=== PATIENT | female | born 1935 | race Caucasian/White ===

== ENCOUNTER 2016-12-08 09:00 | Emergency (ER) | payer OTHER ==
[2016-12-08 09:05] VITALS: BP 142/92; BMI 19.3
--- NOTE | 2016-12-08 09:48 | DR.GENAD ---
HPI - PCP Primary Care Physician: JEANMARIE - Complaint/Symptoms Chief Complaint Doctors Comments: Patient states she has been having stomach pain for the past four days and she thinks she may have a blockage. States the left side of her stomach has a area of swelling and she has not had a bowel movemen for 3-4 days. States she is to have a scan of her stomach next week. States she noticed a buldging in the LLQ the other day. States her stomach is not really painful but feels like when it gets upset and growling. States she is a patient of Dr. Jackson. She denies hematuria, fever, chills, but did have episode diarrhea earlier. States she has been having problems with her stomach but denies stomach ulcers. Chief Complaint:: PATIENT STATED THAT SHE HAS BEEN HAVING STOMACH PROBLEMS FOR THE LAST WEEK AND THINKS SHE MAY HAVE A BLOCKAGE. PATIENT STATED THAT SHE HAS NOT HAD A BOWEL MOVEMENT IN 4 DAYS. - Nurses notes reviewed Nurses Notes Review: Yes - Source History Provided: Patient - Mode of Arrival Mode of Arrival: Ambulatory - Timing Onset of Chief Complaint: 12/01/16 Came on: Gradually - Duration Duration: Constant How lon Duration: Days - Location Location: left lower abdominal discomfort - Severity Severity: Mild - Modifying Factors Worsens:: nothing Improves:: nothing PMH - PMH Past Medical History: Yes Past Medical History: Hypothyroidism Past Surgical History: No - Family History History of Family Medical Conditions: Yes Family Medical History Comment: STROKE - Social History Does patient currently use any type of tobacco product: No Have you used tobacco products in the last 12 months: No Type of Tobacco Use: None Does any household member use tobacco: No Alcohol Use: None Do you use any recreational Drugs:: No Lives With: Family Lives Where: Home - infectious screening In the last 2 months have you had wt loss of >10#?: NO Have you had fever, night sweats or hemotysis?: No Have you traveled outside the country in the last 6 months?: No Isolation: Standard ROS - Review of Systems Constitutional: No Symptoms Reported Eyes: No Symptoms Reported. negative: See HPI, Eye Pain, Blurred Vision, Tearing, Discharge, Photophobia, Diplopia, Other ENTM: No Symptoms Reported Respiratoy: No Symptoms Reported Cardiovascular: No Symptoms Reported. negative: See HPI, Chest Pain, Edema, Palpitations, Syncope, Cyanosis, Skin Mottling, Other Gastrointestinal/Abdominal: No Symptoms Reported, Abdominal Pain Genitourinary: No Symptoms Reported. negative: See HPI, Discharge, Dysuria, Frequency, Hematuria, Pain, Bleeding, Other Neurological: No Symptoms Reported Musculoskeletal: No Symptoms Reported Integumentary: No Symptoms Reported. negative: See HPI, Change in Color, Change in Hair/Nails, Dryness, Lesions, Lumps, Rash, Itching, Wound, Bruises, Juandice, Other Hematologic/Lymphatic: No Symptoms Reported Endocrine: No Symptoms Reported Psychiatric: No Symptoms Reported PE - Vital Signs Vitals: Temperature 97.9 F Pulse Rate 99 Respiratory Rate 20 Blood Pressure 142/92 O2 Sat by Pulse Oximetry 98 - General Limitations: No Limitations General Appearance: Alert, In No Apparent Distress - Head Head Exam: Normal Inspection, Atraumatic, Normocephalic - Eyes Eye exam: Normal Appearance, PERRL, EOMI. negative: Scleral Icterus, Conjunctival Injection, Nystagmus, Miosis, Mydrasis, Periorbital Swelling, Periorbital Tenderness, Other - ENT ENT Exam: Normal Exam, Normal Oropharynx, Normal External Ear Exam, Mucous Membranes Moist, TM's Normal Bilaterally External Ear Exam: Normal External Inspection TM/Canal Exam: Bilateral Normal Nose Exam: Normal Nose Exam Mouth Exam: Normal Inspection Throat Exam: Normal Inspection - Neck Neck Exam: Normal Inspection, Full ROM, Trachea Midline. negative: Tenderness, Meningismus, Lymphadenopathy, Thyromegaly, Other - Chest Chest Inspection: Normal Inspection, Symmetric Chest Wall Rise. negative: Tenderness, Rash, Abscess, Other - Respiratory Respiratory Exam: Normal Lung Sounds Bilat Respiratory Exam: Bilateral Clear to Auscultation - Cardiovascular Cardiovascular Exam: Regular Rate, Normal Rhythm, Normal Heart Sounds - Abdominal Exam Abdominal Exam: Normal Inspection, Normal Bowel Sounds, Soft, Hernia (left hypogastric hernia) Abdominal Tenderness: Epigastrium, Mild - Extremities Extremities Exam: Normal Inspection, Full ROM, Normal Capillary Refill. negative: Tenderness, Edema, Joint Swelling, Calf Tenderness, Other - Back Back Exam: Normal Inspection, Full ROM. negative: Tenderness, (R) CVA Tenderness, (L) CVA Tenderness, Muscle Spasm, Paraspinal Tenderness, Vertebral Tenderness, Rashes, (R) Sciatic Notch Tenderness, (L) Sciatic Notch Tendern, (R ) Straight Leg Raise, (L) Straight Leg Raise, Other - Neurologic Neurological Exam: Alert, Oriented X3, CN II-XII Intact, Normal Gait, Reflexes Normal - Psychiatric Psychiatric Exam: Normal Affect, Normal Mood - Skin Skin Exam: Warm, Dry, Intact, Normal Color ROR - Labs Reviewed Laboratory Results Reviewed?: Yes (all labs and x-ray results reviewed and discussed with patient) Result Diagrams: 12/08/16 09:50 12/08/16 09:50 Laboratory: WBC 6.5 X10^3/uL (3.6-10.0) 12/08/16 09:50 RBC 4.84 X10^6/uL (3.5-5.4) 12/08/16 09:50 Hgb 15.3 g/dL (12.0-16.0) 12/08/16 09:50 Hct 44.8 % (36.0-47.0) 12/08/16 09:50 MCV 92.6 fL (80.0-100.0) 12/08/16 09:50 MCH 31.6 pg (27.0-34.0) 12/08/16 09:50 MCHC 34.1 g/dL (33.0-35.0) 12/08/16 09:50 RDW 13.0 % (11.6-16.5) 12/08/16 09:50 Plt Count 224 X10^3/uL (150.0-450.0) 12/08/16 09:50 MPV 9.2 fL (7.4-11.0) 12/08/16 09:50 Neut % 59.4 % (42.0-75.0) 12/08/16 09:50 Lymph % 30.0 % (21.0-51.0) 12/08/16 09:50 [place] % 7.8 % (0.0-13.0) 12/08/16 09:50 Eos % 2.2 % (0.9-2.9) 12/08/16 09:50 Baso % 0.6 % (0.2-1.0) 12/08/16 09:50 Neut # 3.9 x10^3/uL (2.2-4.8) 12/08/16 09:50 Lymph # 1.9 X10^3/uL (1.3-2.9) 12/08/16 09:50 [place] # 0.5 x10^3/uL (0.3-0.8) 12/08/16 09:50 Eos # 0.1 x10^3/uL (0.0-0.2) 12/08/16 09:50 Baso # 0.0 X10^3/uL (0.0-0.1) 12/08/16 09:50 Absolute Nucleated RBC 0.0 /100WBC 12/08/16 09:50 Sodium 140 mmol/L (136-145) 12/08/16 09:50 Corrected Sodium TNP 12/08/16 09:50 Potassium 4.3 mmol/L (3.5-5.1) 12/08/16 09:50 Chloride 105 mmol/L (98-107) 12/08/16 09:50 Carbon Dioxide 26.6 mmol/L (21-32) 12/08/16 09:50 BUN 17 mg/dL (7-18) 12/08/16 09:50 Creatinine 1.26 mg/dL (0.55-1.02) H 12/08/16 09:50 Est GFR (MDRD) Af Amer 53 (>60) L 12/08/16 09:50 Est GFR (MDRD) Non-Af 43 (>60) L 12/08/16 09:50 Glucose 108 mg/dL (65-99) H 12/08/16 09:50 Calcium 9.7 mg/dL (8.5-10.1) 12/08/16 09:50 Corrected Calcium TNP 12/08/16 09:50 Total Bilirubin 0.80 mg/dL (0.2-1.0) 12/08/16 09:50 AST 16 Units/L (15-37) 12/08/16 09:50 ALT 18 Units/L (12-78) 12/08/16 09:50 Alkaline Phosphatase 65 Units/L (46-116) 12/08/16 09:50 Total Protein 7.2 g/dL (6.4-8.2) 12/08/16 09:50 Albumin 3.9 g/dL (3.4-5.0) 12/08/16 09:50 Globulin 3.3 g/dL (2.5-4.5) 12/08/16 09:50 Albumin/Globulin Ratio 1.2 Ratio (1.1-2.1) 12/08/16 09:50 Amylase 49 Units/L (25-115) 12/08/16 09:50 Lipase 177 Units/L (73-393) 12/08/16 09:50 Specimen Type Clean catch urine 12/08/16 09:45 Urine Color Yellow (YELLOW) 12/08/16 09:45 Urine Appearance Hazy (CLEAR) 12/08/16 09:45 Urine pH 5.0 (5.0 - 8.0) 12/08/16 09:45 Ur Specific [place] 1.025 (1.000-1.030) 12/08/16 09:45 Urine Protein 1+ (NEGATIVE) 12/08/16 09:45 Urine Glucose (UA) Negative (NEGATIVE) 12/08/16 09:45 Urine Ketones 3+ (NEGATIVE) 12/08/16 09:45 Urine Occult Blood 2+ (NEGATIVE) 12/08/16 09:45 Urine Nitrite Negative (NEGATIVE) 12/08/16 09:45 Urine Bilirubin Negative (NEGATIVE) 12/08/16 09:45 Urine Urobilinogen Normal (NORMAL) 12/08/16 09:45 Ur Leukocyte Esterase 1+ (NEGATIVE) 12/08/16 09:45 Urine RBC 0-2 /HPF (NEGATIVE) 12/08/16 09:45 Urine WBC 0-2 /HPF (NEGATIVE) 12/08/16 09:45 Ur Squamous Epith Cells Few /HPF (NEGATIVE) 12/08/16 09:45 Urine Bacteria Trace /HPF (NEGATIVE) 12/08/16 09:45 Hyaline Casts Few /LPF (NEGATIVE) 12/08/16 09:45 Urine Mucus Moderate /HPF (NEGATIVE) 12/08/16 09:45 Ur Culture Indicated? No/not indicated 12/08/16 09:45 - XRAY XRAY Interpreted by: Radiologist (CT abdomen: sigmoid and descending colonic diverticulosis w/mod stool; left renal cysts) - Diagnosis Discharge Problem: Diverticulosis of colon, Constipation, Hernia of abdominal wall - Discharge Plan Disposition: 01 HOME, SELF-CARE Condition: Stable - Follow ups/Referrals Follow ups/Referrals: Sabas Jackson [Primary Care Provider] - 3 days - Instructions Instructions: Diverticulosis, Constipation, Adult, [id number], Hernia, Adult
[2016-12-08 09:55] LABS: BILIRUBIN,URINE NEGATIVE (NEGATIVE); BLOOD/HEMOGLOBIN,URINE 2+ (NEGATIVE); GLUCOSE, URINE NEGATIVE (NEGATIVE); KETONES,URINE 3+ (NEGATIVE); LEUKOCYTE ESTERASE ,URINE 1+ (NEGATIVE); NITRITES,URINE NEGATIVE (NEGATIVE); PROTEIN,URINE 1+ (NEGATIVE); UROBILINOGEN,URINE NORMAL (NORMAL)
[2016-12-08 09:55] LABS: BASOPHILS % (AUTO) 0.6 % (0.2-1.0); EOSINOPHILS # (AUTO) 0.1 x10^3/uL (0.0-0.2); EOSINOPHILS % (AUTO) 2.2 % (0.9-2.9); HEMATOCRIT 44.8 % (36.0-47.0); HEMOGLOBIN 15.3 g/dL (12.0-16.0); LYMPHOCYTES # (AUTO) 1.9 X10^3/uL (1.3-2.9); MEAN CORPUSCULAR HEMOGLOBIN 31.6 pg (27.0-34.0); MEAN CORPUSCULAR HGB CONC 34.1 g/dL (33.0-35.0); MEAN CORPUSCULAR VOLUME 92.6 fL (80.0-100.0); MEAN PLATELET VOLUME 9.2 fL (7.4-11.0); MONOCYTES # (AUTO) 0.5 x10^3/uL (0.3-0.8); MONOCYTES % (AUTO) 7.8 % (0.0-13.0); NEUTROPHILS # (AUTO) 3.9 x10^3/uL (2.2-4.8); NEUTROPHILS % (AUTO) 59.4 % (42.0-75.0); PLATELET COUNT 224 X10^3/uL (150.0-450.0); RED BLOOD COUNT 4.84 X10^6/uL (3.5-5.4); WHITE BLOOD COUNT 6.5 X10^3/uL (3.6-10.0)
[2016-12-08 10:04] LABS: APPEARANCE,URINE HAZY (CLEAR); BACTERIA,URINE TRACE /HPF (NEGATIVE); COLOR,URINE YELLOW (YELLOW); HYALINE CASTS, URINE FEW /LPF (NEGATIVE); MUCUS,URINE MODERATE /HPF (NEGATIVE); RBC,URINE 0-2 /HPF (NEGATIVE); SQUAMOUS EPITHELIAL CELL,UR FEW /HPF (NEGATIVE)
[2016-12-08 10:09] LABS: ALANINE AMINOTRANSFERASE 18 Units/L (12-78); ALBUMIN 3.9 g/dL (3.4-5.0); ALKALINE PHOSPHATASE 65 Units/L (46-116); AMYLASE 49 Units/L (25-115); ASPARTATE AMINO TRANSFERASE 16 Units/L (15-37); BLOOD UREA NITROGEN 17 mg/dL (7-18); CALCIUM 9.7 mg/dL (8.5-10.1); CARBON DIOXIDE 26.6 mmol/L (21-32); CHLORIDE 105 mmol/L (98-107); CREATININE 1.26 mg/dL (0.55-1.02); LIPASE 177 Units/L (73-393); SODIUM 140 mmol/L (136-145); TOTAL PROTEIN 7.2 g/dL (6.4-8.2); eGFR BLACK RACES 53 (>60); eGFR NON BLACK RACES 43 (>60)
--- NOTE | 2016-12-08 10:26 | CT ---
History: Left upper quadrant pain and fullness. Exam: Non-contrast CT examination of the abdomen & pelvis. Technique: Multiple CT images of the abdomen and pelvis were obtained from the lung bases to the pubi c symphysis without the IV administration of radiopaque contrast. Findings: The lung bases are clear. The heart is normal in size without a pericardial effusion. The liver, gall bladder, adrenal glands, and spleen are unremarkable on these non contrasted images. There is no pneu moperitoneum or hemoperitoneum seen. There is no bowel obstruction, large hernia defect, or acute mes enteric inflammatory change. There is no evidence for colitis, diverticulitis, or appendicitis. No lo culated intraperitoneal fluid collection is seen. There is diffuse descending and sigmoid colonic div erticulosis without findings of acute diverticulitis. There is a moderate quantity of colonic stool. Multiple left-sided parapelvic renal cysts are observed. There is scattered aortic atherosclerosis pr esent. Numerous phleboliths seen. Examination of the kidneys demonstrates no obstructing renal stones . No other renal, bladder, or abdominopelvic abnormalities are seen. No lytic bony lesions or acute f ractures are seen. Impression: Sigmoid and descending colonic diverticulosis with a moderate quantity of colonic stool without evide nce for additional acute abdominopelvic abnormality. No obstruction, evidence for colitis, or evidenc e for acute diverticulitis. Normal appendix is observed. Reported By:
[2016-12-08] MEDS ORDERED: DULCOLAX TAB EC 5 MG PO ONE (10:41)
[2016-12-08] MEDS ORDERED: CHRONULAC PO SCH (11:00)
== END 2016-12-08 10:58 | disposition home or self-care (01) ==
LOC: ER 09:14
DX: K57.30 Diverticulosis of large intestine without perforation or abscess without bleeding (principal); K43.9 Ventral hernia without obstruction or gangrene; K59.09 Other constipation
CPT/HCPCS: 36415; 74176; 80053; 81001; 82150; 83690; 85025; 99282; 99283